=== PATIENT | male | born 1965 | race Caucasian/White ===

== ENCOUNTER 2017-08-19 19:47 | Emergency (ER) | payer MEDICAID ==
[~2017-08-19] VITALS: Ht 188 cm; Wt 84.1 kg
[~2017-08-19 19:47] MED LIST: ALBU8HFA PO; GABA600T2 PO; HYDR-565 PO; NAPR-56 PO
[2017-08-19 19:59] VITALS: BP 115/100
[2017-08-19] MEDS ORDERED: HYDR-569 PO (20:16)
[2017-08-19] MEDS ORDERED: GABA600T2 PO (20:16)
[2017-08-19] MEDS ORDERED: DULO20CA50 PO (20:16)
[2017-08-19] MEDS ORDERED: NAPR-56 PO (20:16)
[2017-08-19] MEDS ORDERED: duloxetine 20mg capsule.DR PO ONE (20:20)
[2017-08-19] MEDS ORDERED: HYDROcodone/acetaminophen 10/325mg tab PO ONE (20:20)
[2017-08-19] MEDS ORDERED: ketorolac trometh inj. 60 MG/2 ML VIAL IM ONE (20:20)
[2017-08-19] MEDS ORDERED: gabapentin 400mg capsule PO ONE (20:20)
== END 2017-08-19 20:46 | disposition home or self-care (01) ==
LOC: ER 19:48
DX: G89.29 Other chronic pain (principal); M54.5 Low back pain; I10 Essential (primary) hypertension; M19.90 Unspecified osteoarthritis, unspecified site; F12.10 Cannabis abuse, uncomplicated; F11.10 Opioid abuse, uncomplicated; Z56.0 Unemployment, unspecified; Z79.899 Other long term (current) drug therapy
CPT/HCPCS: 96372; 99284; J1885

== ENCOUNTER 2017-10-12 07:09 | Day surgery (SDC) | payer MEDICAID ==
[2017-10-04 14:45] LABS: BASOPHILS # (AUTO) 0.1 X10'3 (0-0.2); BASOPHILS % (AUTO) 1.2 % (0-1); EOSINOPHILS # (AUTO) 0.3 X10'3 (0-0.9); EOSINOPHILS % (AUTO) 2.7 % (0-6); LYMPHOCYTES # (AUTO) 2.7 X10'3 (1.1-4.8); LYMPHOCYTES % (AUTO) 28.5 % (21-51); MEAN CORPUSCULAR HEMOGLOBIN 31.4 PG (27.0-31.0); MEAN CORPUSCULAR HGB CONC 34.3 % (33.0-36.5); MEAN CORPUSCULAR VOLUME 91.5 FL (78-98); MEAN PLATELET VOLUME 6.9 FL (7.4-10.4); MONOCYTES # (AUTO) 0.5 X10'3 (0-0.9); MONOCYTES % (AUTO) 5.5 % (2-12); NEUTROPHILS # (AUTO) 5.8 X10'3 (1.8-7.7); NEUTROPHILS % (AUTO) 62.1 % (42-75); PRE OP HEMATOCRIT 41.4 % (42.0-52.0); PRE OP HEMOGLOBIN 14.2 g/dL (14.0-17.9); PRE OP PLATELET COUNT 344 X10'3 (140-440); RED BLOOD COUNT 4.53 X10'6 (4.70-6.10); RED CELL DISTRIBUTION WIDTH 14.3 % (11.5-14.5)
[2017-10-04 15:01] LABS: ALBUMIN 3.8 G/DL (3.4-5.0); ALBUMIN/GLOBULIN RATIO 1.1 (1.1-1.5); ALKALINE PHOSPHATASE 76 IU/L (46-116); BLOOD UREA NITROGEN 23 MG/DL (7-18); CALCIUM 8.8 MG/DL (8.5-10.1); CHLORIDE 105 MMOL/L (99-107); CREATININE 0.82 MG/DL (0.60-1.10); PRE OP ALT 71 U/L (30-65); PRE OP ANION GAP 10 (8-16); PRE OP AST 32 U/L (10-37); PRE OP BILIRUB, TOTAL 0.4 MG/DL (0.0-1.0); PRE OP GLUCOSE 114 MG/DL (70-104); PRE OP SODIUM 140 MMOL/L (135-145); TOTAL CARBON DIOXIDE 24.8 MMOL/L (24-32); TOTAL PROTEIN 7.2 G/DL (6.4-8.2); eGFR > 90 ML/MIN
[2017-10-04 15:08] LABS: HEMOGLOBIN A1C 5.9 % (4.5-6.2)
[2017-10-04 15:09] LABS: PRE OP POTASSIUM 4.3 MMOL/L (3.4-5.1)
[2017-10-12] VITALS (18 sets, daily range): BP systolic 119–140; BP diastolic 47–92
[~2017-10-12] VITALS: Ht 190.5 cm; Wt 84.8 kg
[~2017-10-12 07:09] MED LIST changes: -ALBU8HFA PO; +Cefazolin 2GM/100ML NS IVPB IV ONE; +DULO20CA50 PO; +IBUP-1985 PO; -NAPR-56 PO; +VANCOMYCIN INJ 1000 MG in NORMAL SALINE 250ml IV.SOLN IV ONE; +famotidine 20mg tablet PO ONE; +ringers solution, lacted 1,000 ML IV SCH
[2017-10-12] MEDS ORDERED: LIDOcaine 1% (10mg/ml) 2ml vial ONE (07:34)
[2017-10-12] MEDS ORDERED: BUPIVAcaine/PF 7.5mg/ml (0.75%) 10ml vial ONE (07:54)
[2017-10-12] MEDS ORDERED: triamcinolone acetonide 40mg/ml inj ONE (07:54)
[2017-10-12] MEDS ORDERED: midazolam 2 mg/2 ml injection ONE ×2 (08:23→08:33)
[2017-10-12] MEDS ORDERED: fentaNYL /PF 50mcg/ml 5ml ampule ONE (08:32)
[2017-10-12] MEDS ORDERED: meperidine/PF 50mg/ml syringe ONE (08:33)
[2017-10-12] MEDS ORDERED: rocuronium 10mg/ml inj IV ONE (08:34)
[2017-10-12] MEDS ORDERED: propofol inj 20 ML IV ONE (08:34)
[2017-10-12] MEDS ORDERED: sevoflurane 250ml liquid IH ONE (08:35)
[2017-10-12] MEDS ORDERED: nitroGLYCERIN in D5W 50mg/250ml (Tridil) infusion IV ONE (08:35)
[2017-10-12] MEDS ORDERED: BUPIVAcaine/PF 2.5 mg/ml (0.25%) 30ml vial ONE (08:41)
[2017-10-12] MEDS ORDERED: ROPIVAcaine 0.5% (5mg/ml) 30ml vial ONE (08:41)
[2017-10-12] MEDS ORDERED: ringers solution, lacted 1,000 ML IV SCH (09:07)
[2017-10-12] MEDS ORDERED: ondansetron/PF 4mg/2ml inj IV PRN (09:10)
[2017-10-12] MEDS ORDERED: hydrALAZINE 20mg/ml inj. IV PRN (09:10)
[2017-10-12] MEDS ORDERED: labetalol 20mg/4ml (5mg/ml) syringe IV PRN (09:10)
[2017-10-12] MEDS ORDERED: proCHLORperazine 10 MG/2 ml inj IV PRN (09:10)
[2017-10-12] MEDS ORDERED: HYDROmorphone inj. 0.5 MG/0.5 ML DISP.SYRIN IV PRN ×2 (09:10)
[2017-10-12] MEDS ORDERED: meperidine/PF 25mg/ml syringe IV PRN ×2 (09:10)
[2017-10-12] MEDS ORDERED: ketorolac trometh. 30mg/ml inj. IV ONE (09:10)
[2017-10-12] MEDS ORDERED: fentaNYL/PF 50MCG/1 ML 2ML syringe IV PRN ×3 (09:10)
[2017-10-12] MEDS ORDERED: dexamethasone sod phosphate 4mg/ml inj. ONE (09:36)
[2017-10-12] MEDS ORDERED: ondansetron/PF 4mg/2ml inj ONE (09:36)
[2017-10-12] MEDS ORDERED: phenylephrine 10mg/ml inj IV ONE (09:44)
[2017-10-12] MEDS ORDERED: glycopyrrolate 0.2mg/ml inj ONE (10:30)
[2017-10-12] MEDS ORDERED: neostigmine methylsulfate 1 MG/ML 10ml vial ONE (10:30)
[2017-10-12] MEDS ORDERED: HYDROcodone/acetaminophen 10/325mg tab PO ONE (14:05)
== END 2017-10-12 14:41 | disposition home or self-care (01) ==
LOC: PAS 07:09
PROVIDERS: ATTEND Orthopaedic Surgery
DX: S46.011A Strain of muscle(s) and tendon(s) of the rotator cuff of right shoulder, initial encounter (principal); S43.431A Superior glenoid labrum lesion of right shoulder, initial encounter; M19.011 Primary osteoarthritis, right shoulder; M94.211 Chondromalacia, right shoulder; M65.811 Other synovitis and tenosynovitis, right shoulder; F41.9 Anxiety disorder, unspecified; G89.4 Chronic pain syndrome; I10 Essential (primary) hypertension; F32.9 Major depressive disorder, single episode, unspecified; G43.909 Migraine, unspecified, not intractable, without status migrainosus; E11.9 Type 2 diabetes mellitus without complications; F17.210 Nicotine dependence, cigarettes, uncomplicated; G25.81 Restless legs syndrome; Z72.89 Other problems related to lifestyle; Z98.890 Other specified postprocedural states; Z82.3 Family history of stroke; X58.XXXA Exposure to other specified factors, initial encounter; Y93.89 Activity, other specified; Y92.89 Other specified places as the place of occurrence of the external cause; Y99.8 Other external cause status; Z79.899 Other long term (current) drug therapy
CPT/HCPCS: 29807; 29826; 29827; 36415; 80053; 82948; 83036; 85025; 93005; A6449; C1713; J0690; J1100; J1885; J2175; J2250; J2370; J2405; J2704; J2710; J3010; J3370; J3490; J7030; J7120; A6250; A7000; J2795; J3301

== ENCOUNTER 2020-04-22 11:54 | Emergency (ER) | payer MEDICAID, OTHER ==
[~2020-04-22 11:54] MED LIST changes: -Cefazolin 2GM/100ML NS IVPB IV ONE; +GABA600T13 PO; -GABA600T2 PO; +HYDR-4353 PO; -HYDR-565 PO; +METH-360 PO; -VANCOMYCIN INJ 1000 MG in NORMAL SALINE 250ml IV.SOLN IV ONE; -famotidine 20mg tablet PO ONE; -ringers solution, lacted 1,000 ML IV SCH
[2020-04-22 11:58] VITALS: BP 130/93
== END 2020-04-22 12:53 | disposition left against medical advice (07) ==
LOC: ER 11:55
DX: M54.2 Cervicalgia (principal); Z53.21 Procedure and treatment not carried out due to patient leaving prior to being seen by health care provider

== ENCOUNTER 2022-10-20 05:53 | Emergency (ER) | payer MEDICAID, OTHER ==
[~2022-10-20] VITALS: Ht 186.7 cm; Wt 90.9 kg
[2022-10-20 06:20] VITALS: BP 142/92
[2022-10-20] MEDS ORDERED: triamcinolone acetonide 40mg/ml inj IM ONE (07:10)
[2022-10-20] MEDS ORDERED: gabapentin 400mg capsule PO ONE (07:10)
[2022-10-20] MEDS ORDERED: duloxetine 20mg capsule.DR PO ONE (07:10)
[2022-10-20] MEDS ORDERED: IBUP-1984 PO (07:18)
== END 2022-10-20 07:44 | disposition home or self-care (01) ==
LOC: ER 05:53
DX: M25.512 Pain in left shoulder (principal); I10 Essential (primary) hypertension; M19.90 Unspecified osteoarthritis, unspecified site; G89.29 Other chronic pain; F17.200 Nicotine dependence, unspecified, uncomplicated; F12.90 Cannabis use, unspecified, uncomplicated; F11.90 Opioid use, unspecified, uncomplicated; Z56.0 Unemployment, unspecified; Z79.899 Other long term (current) drug therapy
CPT/HCPCS: 20610; 73030; 99283

== ENCOUNTER 2023-02-23 21:22 | Emergency (ER) | payer MEDICARE, MEDICAID ==
[~2023-02-23] VITALS: Ht 185.4 cm; Wt 100.0 kg
[2023-02-23 21:36] VITALS: BP 161/83; PULSE 66; RESP 18; TEMP 98; O2SAT 96
[2023-02-24] MEDS ORDERED: gabapentin 300mg capsule PO STA (03:01)
[2023-02-24] MEDS ORDERED: ibuprofen tablet 400 MG TABLET PO ONE (03:05)
[2023-02-24] MEDS ORDERED: duloxetine 30mg CAPSULE.DR PO SCH (03:05)
[2023-02-24] MEDS ORDERED: duloxetine 20mg capsule.DR PO SCH (03:05)
[2023-02-24] MEDS ORDERED: DULO60CA59 PO (04:01)
[2023-02-24] MEDS ORDERED: GABA800T11 PO (04:01)
[2023-02-24] MEDS ORDERED: IBUP-1984 PO (04:01)
== END 2023-02-24 04:20 | disposition home or self-care (01) ==
LOC: ER 21:22
DX: G89.29 Other chronic pain (principal); M54.9 Dorsalgia, unspecified; Z76.0 Encounter for issue of repeat prescription; I10 Essential (primary) hypertension; F12.10 Cannabis abuse, uncomplicated; Z56.0 Unemployment, unspecified
CPT/HCPCS: 99284

== ENCOUNTER 2025-04-21 16:04 | Emergency (ER) | payer MEDICARE, MEDICAID ==
[~2025-04-21] VITALS: Ht 188 cm; Wt 95.5 kg
[~2025-04-21 16:04] MED LIST changes: +DULO60CA59 PO; +GABA-1405 PO; +GABA-1555 PO; -GABA600T13 PO; -IBUP-1985 PO; +IBUP600T52 PO
[2025-04-21 16:06] VITALS: TEMP 98
--- NOTE | 2025-04-21 16:23 | Physician Documentation ---
History of Present Illness ~ Chief Complaint: Medical Clearance Stated Complaint: MED CLEARANCE Time Seen by MD: 16:11 Primary Medical Doctor: [facility] HPI 59-year-old male presents via [facility]'s office for medical clearance secondary to elevated blood pressure. Currently his blood pressure is so 179 systolic. He is that he used to take lisinopril but does not currently. He denies any chest pain shortness of breath nausea vomiting Tetanus within 5 years?: Yes Medication Reconciliation Allergies: Coded Allergies: No Known Allergies (Unverified , 02/23/23) Scheduled Duloxetine HCl (Cymbalta), 1 CAP PO BID Duloxetine Hcl* (Cymbalta*), 1 CAP PO DAILY Gabapentin (Gabapentin), 2 TAB PO Q8H Gabapentin (Gabapentin), 1 TAB PO Q8H Hydrocodone Bit/Acetaminophen ([place] 10-325 Tablet), 1 TAB PO Q6H PRN PAIN, (Reported) Ibuprofen (Ibuprofen), 1 TAB PO Q8H Methocarbamol (Robaxin-750), 1 TAB PO Q12H Scheduled PRN Ibuprofen (Ibuprofen), 1 TAB PO TID PRN for pain, (Reported) Past Medical History Past Medical History: Headache, Hypertension, Arthritis, Chronic Pain, Chronic Back Pain Past Surgical History: no surgical history Alcohol Use: Rarely Drug Use: marijuana, heroin Lives In: Home Occupation: unemployed Review of Systems All Other Systems at this time: Reviewed and Negative ROS As stated above in the HPI, otherwise all systems are reviewed and negative. Physical Exam Vital Signs: Temperature: 98.0, Source: Temporal, Heart Rate: 55, Respiratory Rate: 16, BP: 201/100, Pulse Oximetry: 98, Weight: 95.450 Oxygen Flow Rate: 0 Physical Exam General: Alert, no apparent distress. Respiratory: Lungs clear, no respiratory distress. Cardiovascular: Regular rate and rhythm, no murmurs. Gastrointestinal: Soft, nontender, nondistended. Bowels sounds present. Neurologic: Oriented x4. Psychiatric: Normal mood and affect. Skin: Normal color, warm and dry. No edema, no ecchymosis. Progress Results/Orders Results/Orders Completed Orders - GARRISON IVY [employer] Hydralazine Tablet (Apresoline 10mg Tabl (04/21/25 16:14) Electrocardiogram (04/21/25 ) Medications Received in ER Medications (Trade) Dose Ordered Sig/Abel Route PRN Reason Start Time Stop Time Status Last Admin Dose Admin (Apresoline 10mg tablet) 10 mg NOW STAT PO 04/21/25 16:14 04/21/25 16:15 DC 04/21/25 16:43 10 MG Vital Signs 04/21/25 04/21/25 04/21/25 04/21/25 16:06 16:33 16:43 16:52 Temp 98.0 Pulse 55 81 72 83 Resp 16 16 18 B/P (MAP) 201/100 159/118 (132) 159/109 Pulse Ox 98 93 93 O2 Flow Rate 0 0 Medical Decision Making Additional information obtaine: old records Findings Does not present with any signs of acute cardiac event. EKG was reassuring normal sinus rhythm with no axis deviation or ST-elevation gave him hydralazine reduced his blood pressure to ensure a safe transport to halfway Differential Dx:Considerations: Include: Intoxication-Alcohol, Intoxication-Ot her drug, Personality disorder, Substance abuse disorder, Acute delirium, Closed head injury, Cervical spine injury, Skull fracture, Fracture(s), Abrasion, Contusion, Foreign body, Hematoma, Laceration, Alcohol withdrawl syndrom, Encephalopathy, Hepatitis, Medically stable, Other Departure Disposition: 01 HOME / SELF CARE / HOMELESS Impression: Primary Impression: Benign essential HTN Additional Impression: Methamphetamine abuse Condition: Improved Additional Instructions: Patient was evaluated for benign hypertension he is provided hydralazine. Blood pressure was 179 initially in he is beginning to trend downward. This time I am going to medically clear this patient for incarceration Referrals: NO PRIMARY CARE PROVIDER (PCP) Signature Scribe Signature: d Attestation: Scribed for Garrison Ivy [employer] And Former by Garrison Ivy - HARPREET . 04/21/25 16:21 GARRISON IVY NP Apr 21, 2025 16:23
--- NOTE | 2025-04-21 16:40 | ELECTROCARDIOGRAPH REPORT ---
[facility] Test Date: 2025-04-21 Test Time: 16:36:59 Pat Name: DANNI DALEY Department: [facility]-ER Patient ID: [facility]-[id number] Room: Gender: M [employer]: : [id number] Requested By: COURTNEY IVY Order Number: [id number] Reading MD: Dr. MED Max Measurements Intervals [place] Rate: 82 P: 80 NV: 175 QRS: 67 QRSD: 99 T: 62 QT: 383 QTc: 448 Interpretive Statements Sinus arrhythmia Multiple ventricular premature complexes Consider right atrial enlargement Electronically Signed On 04-22-2025 17:33:[address] MED Max Please click the below link to view image of tracing.
[2025-04-21 16:52] VITALS: BP 159/109; PULSE 83; RESP 18; O2SAT 93
== END 2025-04-21 16:54 ==
LOC: ER 16:04
DX: I10 Essential (primary) hypertension (principal); F15.10 Other stimulant abuse, uncomplicated; M19.90 Unspecified osteoarthritis, unspecified site; G89.29 Other chronic pain; F12.90 Cannabis use, unspecified, uncomplicated; F11.90 Opioid use, unspecified, uncomplicated; Z79.899 Other long term (current) drug therapy; Z56.0 Unemployment, unspecified
CPT/HCPCS: 93005; 99283